=== PATIENT | male | born 1955 | race Caucasian/White ===

== ENCOUNTER 2018-06-23 08:39 | Outpatient (CLI) | payer BC ==
--- NOTE | 2018-06-23 10:38 | CARDIAC PROCEDURE NOTE ---
DATE OF SERVICE: 06/23/2018 Physician: Galina Lockhart MD, [facility] INDICATION: Dizziness and palpitations. CARDIAC RISK FACTORS: Male gender, elevated cholesterol. MEDICATIONS: Cholesterol medications. DESCRIPTION OF PROCEDURE: After signing informed consent, the patient underwent a Himanshu protocol treadmill stress test. No imaging was ordered with this test. Resting heart rate: 55. Peak heart rate: 141 (88% predicted maximum heart rate for age). Resting blood pressure: 130/70. Peak blood pressure: 182/60. The patient exercised for 7 minutes and 48 seconds on a Himanshu protocol treadmill stress test. He had no dizziness, lightheadedness, feelings of palpitations, no shortness of breath or chest pain complaints. The patient achieved 88% PMHR and 9.8 METS. His rhythm showed sinus arrhythmia in recovery (a normal rhythm). RESTING EKG: Normal sinus rhythm, LVH voltage. EKG AT [facility]: No ischemic ST segment or T wave changes. SUMMARY 1. Abnormal resting EKG showing LVH. 2. Normal heart rate and blood pressure response to exercise. 3. Good - excellent exercise tolerance. 4. No ischemic changes by EKG criteria on this exercise stress test, at an adequate level of stress achieved. 5. No imaging study was ordered with this test. cc: Darrel Melgoza MD TD: 06/23/2018 10:33 MTDD
== END 2018-06-23 08:40 | disposition home or self-care (01) ==
LOC: DI 08:39
PROVIDERS: ATTEND Internal Medicine
DX: R42 Dizziness and giddiness (principal); R00.2 Palpitations; E78.00 Pure hypercholesterolemia, unspecified; R94.31 Abnormal electrocardiogram [ECG] [EKG]
CPT/HCPCS: 93017

== ENCOUNTER 2022-06-05 08:51 | Day surgery (SDC) | payer MEDICARE, BC ==
[~2022-06-05 08:51] MED LIST: PROPOFOL 200 MG/20 ML VIAL IVP ONE
[2022-06-05] MEDS ORDERED: LACTATED RINGERS 1,000 ML IV ONE (09:00)
--- NOTE | 2022-06-05 09:12 | ANESTHESIA ---
Pre-Anesthesia VS, & Labs - Diagnosis screening - Procedure colonoscopy Vital Signs: Temp Pulse Resp BP Pulse Ox O2 Flow Rate 36.5 C 56 L 14 141/85 H 100 06/05/22 09:00 06/05/22 09:00 06/05/22 09:00 06/05/22 09:00 06/05/22 09:00 Height: 5 ft 9 in Weight (kg): 83.9 kg Body Mass Index: 27.3 BMI Classification: Overweight - NPO >8 hours Last Fluid Intake: am prep - Lab Results Lab results reviewed: Yes Home Medications and Allergies Home Medications: Ambulatory Orders Atorvastatin [Lipitor] 80 mg PO QPM 06/04/22 Atorvastatin [Lipitor] 80 mg PO QPM 06/04/22 Allergies/Adverse Reactions: Allergies Allergy/AdvReac Type Severity Reaction Status Date / Time No Known Drug Allergies Allergy Verified 06/05/22 09:14 Anes History & Medical History - Anesthetic History Anesthesia Complications: reports: No previous complications Family history of Anesthesia Complications: Denies Family history of Malignant Hyperthermia: Denies - Medical History Cardiovascular: reports: High cholesterol Pulmonary: reports: None Gastrointestinal: reports: None Urinary: reports: None Musculoskeletal: reports: None Endocrine/Autoimmune: reports: None Skin: reports: None Smoking Status: Never smoker Psychosocial: reports: No issues indicated History of Cancer?: No - Surgical History General: reports: Colonoscopy Gynecologic: reports: Other Exam General: Alert, Oriented x3, Cooperative Dental: WNL Mouth Openin Fingerbreadth Neck Mobility: Normal Mallampati classification: II Respiratory: Lungs clear, Normal breath sounds, No respiratory distress Cardiovascular: Regular rate Neurological: Normal speech Mental/Cognitive Status: Alert/Oriented X3, Normal for patient Cognitive Status: Within normal limits Plan Anesthesia Type: Total IV Consent for Procedure(s) Verified and Reviewed: Yes Code Status: Attempt Resuscitation ASA classification: 2-Mild systemic disease Is this case an emergency?: No
[2022-06-05] MEDS ORDERED: MIDAZOLAM 2 MG/2 ML VIAL ONE (09:56)
[2022-06-05] MEDS ORDERED: PROPOFOL 200 MG/20 ML VIAL IVP ONE (09:58)
[2022-06-05] MEDS ORDERED: LACTATED RINGERS 400 ML IV ONE (10:24)
[2022-06-05 11:13] VITALS: BP 130/82
--- NOTE | 2022-06-05 12:03 | ANESTHESIA POST OP EVALUATION ---
Anesthesia Post Eval - Post Anesthesia Eval Vitals: Last Vital Signs Temp 36.2 C L 06/05/22 11:10 Pulse 59 L 06/05/22 11:10 Resp 16 06/05/22 11:10 BP 130/82 H 06/05/22 11:10 Pulse Ox 98 06/05/22 11:10 O2 Flow Rate CV Function Including HR & BP: Stable Pain Control: Satisfactory Nausea & Vomiting: Negative Mental Status: Baseline Respiratory Status: Airway Patent Hydration Status: Satisfactory Anesthesia Complications: None
== END 2022-06-05 08:52 | disposition home or self-care (01) ==
LOC: SDS 08:51
PROVIDERS: ATTEND Surgery
PROC: 0DBL8ZZ Excision of Transverse Colon, Via Natural or Artificial Opening Endoscopic (ICD-10-PCS; 2022-06-05)
PROC: 0DBN8ZZ Excision of Sigmoid Colon, Via Natural or Artificial Opening Endoscopic (ICD-10-PCS; 2022-06-05)
PROC: 0DBK8ZZ Excision of Ascending Colon, Via Natural or Artificial Opening Endoscopic (ICD-10-PCS; principal; 2022-06-05 10:00)
DX: Z12.11 Encounter for screening for malignant neoplasm of colon (principal); D12.2 Benign neoplasm of ascending colon; D12.3 Benign neoplasm of transverse colon; K63.5 Polyp of colon
CPT/HCPCS: 45380; 45385; J7120

== ENCOUNTER 2023-10-08 07:46 | Outpatient (CLI) | payer MEDICARE, BC ==
--- NOTE | 2023-10-08 10:36 | CT Report ---
PROCEDURE: Chest WO INDICATIONS: PULMONARY NODULE TECHNIQUE: A CT scan of the chest was performed. Intravenous contrast media was not administered. Images were re corded and evaluated at appropriate window settings. Reformats: axial MIP of the chest, coronal and s agittal. For radiation dose reduction, the following was used: automated exposure control, adjustment of mA and/or kV according to patient size. COMPARISON: None. FINDINGS: Image quality: Diagnostic. Chest wall and lower neck: No thyroid nodule which requires sonographic follow up. No axillary or sup raclavicular adenopathy by size. Lungs and pleura: No consolidation. No pleural effusions. No pneumothorax. There is a part solid jessica gular nodule measuring 6 mm, 12/259. Thin flat nodular opacity, fissural lymph node, is associated wi th the right minor fissure. Calcified nodule in the lateral right lung apex, benign granuloma. Lungs are otherwise clear. Central and peripheral airways are normal caliber without bronchial wall thicken ing or bronchiectasis. Mediastinum: Heart size is normal. No pericardial effusion. Moderate coronary artery calcification. N o large vessel abnormality. No mediastinal adenopathy by size criteria. No anterior or posterior med iastinal mass. Normal esophagus with a tiny hiatal hernia Bones: No aggressive osseous abnormality. Prominent bridging endplate osteophytes in the mid and lowe r thoracic spine. Upper Abdomen: Visible portions of the upper abdomen are otherwise normal. IMPRESSION: A 6 mm nonspecific lingular nodule. If the patient is high risk for lung cancer, follow-up chest CT at 6-12 months is recommended. Otherwise a 1 year follow-up chest CT is recommended. Reviewed by: Yumiko Orozco MD on 10/08/2023 10:35 AM PDT Approved by: Yumiko Orozco MD on 10/08/2023 10:35 AM PDT Station ID: [id number]
== END 2023-10-08 07:47 | disposition home or self-care (01) ==
LOC: DI 07:46
PROVIDERS: ATTEND Physician Assistant
DX: R91.1 Solitary pulmonary nodule (principal)